=== PATIENT | male | born 1980 | race Caucasian/White ===

== ENCOUNTER → 2017-12-27 | Outpatient (CLI) | payer OTHER ==
--- NOTE | 2017-12-27 15:46 | Diagnostic Imaging Report ---
PROCEDURE:TESTICULAR ULTRASOUND COMPARISON:[facility], TESTICULAR DOPPLER LTD, 12/27/2017, 14:28. INDICATIONS:TESTICULAR PAIN TECHNIQUE: Herrera-scale and color Doppler images of the testicles and scrotal contents were obtained. Duplex imaging with spectral waveform analysis was performed of the testicular arteries and veins. FINDINGS: RIGHT SCROTUM: Testicle: 2.5 x 3.0 x 4.8 cm Epididymal head: 11 x 16 x 7 mm Hydrocele: None Varicocele: None LEFT SCROTUM: Testicle: 2.3 x 2.9 x 4.1 cm Epididymal head: 10 x 5 x 11 mm Hydrocele: Small Varicoceles: Present. Blood flow: There is normal spectral Doppler waveform to each testicle. There is increased blood flow in the left testis compared to the right. Sonographic images of the lower quadrants demonstrate no evidence of hernia. CONCLUSION: 1. Increased vascularity of the left testis suggestive of orchitis. Small left hydrocele and small left varicoceles. 2. No testicular or scrotal mass. No hernia. Dictated by: Felisha Emanuel M.D. on 12/27/2017 at 15:47 Electronically approved by: Felisha Emanuel M.D. on 12/27/2017 at 15:47
--- NOTE | 2017-12-27 15:47 | Diagnostic Imaging Report ---
PROCEDURE:TESTICULAR DOPPLER ULTRASOUND COMPARISON:[facility], , US TESTICULAR, 12/27/2017, 14:28. INDICATIONS:TESTICULAR PAIN TECHNIQUE: Color Doppler images of the testicles and scrotal contents were obtained. Duplex imaging with spectral waveform analysis was performed of the testicular arteries and veins. FINDINGS: Please see [id number] for report. Dictated by: Felisha Emanuel M.D. on 12/27/2017 at 15:48 Electronically approved by: Felisha Emanuel M.D. on 12/27/2017 at 15:48
== END ==
LOC: US 14:06
PROVIDERS: ATTEND Internal Medicine
DX: N50.819 Testicular pain, unspecified (principal)
CPT/HCPCS: 76870; 93976